=== PATIENT | female | born 1950 | race Caucasian/White ===

== ENCOUNTER 2019-03-13 10:52 | Outpatient (AMBR) | payer MEDICARE, MEDICAID, SELFPAY ==
--- NOTE | 2019-03-13 12:00 | PT.ODS1RPT ---
PT OP Progress/Discharge Note Date of Service: March 13, 2019 Progress Note/DC Note Progress Note/Discharge Note: DC Note Patient Information Visit Reasons: HIP PAIN Service Continue Service or Discharge: Discharge Discharge Date: 03/13/19 Status Subjective: Pt reports her ssx are about the same as before therapy. She hasn't bought an SI belt yet, will try to get one. Objective: Objective findings same as evaluation. 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 Pt has continued referred pain into the R glute. PT recommends SI belt to compress pelvis and reduce movement at SI joints. Plan: Pt is discharged to provider for further workup. Office Procedures PT Procedures PT Date of Service: 03/13/19 Therapeutic Exercise 30 minutes: Yes
== END 2019-04-11 23:59 | disposition home or self-care (01) ==
PROVIDERS: PCP Physical Medicine & Rehabilitation Hospice and Palliative Medicine; Referring Provider Physical Medicine & Rehabilitation Hospice and Palliative Medicine; Visit Provider Nurse Practitioner
DX: M79.18 Myalgia, other site (principal); M54.16 Radiculopathy, lumbar region; I10 Essential (primary) hypertension
CPT/HCPCS: 97110

== ENCOUNTER 2024-04-09 14:00 | Emergency (ER) | payer MEDICARE, MEDICAID, SELFPAY ==
[2024-04-09 14:03] VITALS: BP 187/92; PULSE 94; RESP 18; TEMP 36.7; O2SAT 95
[2024-04-09 14:04] VITALS: PULSE 102; RESP 22; O2SAT 97
--- NOTE | 2024-04-09 14:45 | PC.NURSE ---
PT BIBA do to abdominal pain that started around 10 this. Pt states that she has been seen for an inguinal hernia and has had it for several months, but today while having a small bowel movement, her stomach started hurting worse with a burning sensation starting from her very low right abdominal quadrant down into her groin.
--- NOTE | 2024-04-09 15:04 | XR_ITS ---
Examination: CT abdomen with intravenous contrast CT pelvis with intravenous contrast 2-D coronal reconstructions 2-D sagittal reconstructions Date and time of exam:April 09, 2024 1710 hrs. Comparison August 08, 2023 Indications: Right lower abdominal pain onset today. CTDI: vol (mGy) 11.2 DLP: (mGycm) 547 Technique: Multiple axial sections of the abdomen and pelvis have been obtained. 64 slice high-resolution scanner used. 3 mm axial sections have been obtained, post intravenous injection 60 cc Isovue-370 2-D sagittal, coronal reconstructions obtained. Low dose protocols were performed. One or more of the following dose reduction techniques were used; automated exposure control, adjustment of the mA and/or KV according to patient size, use of iterative reconstruction technique. Findings: Mild intrahepatic biliary tract dilatation Gallbladder is not visualized Common bile duct 14 mm Spleen not enlarged No pancreatic or adrenal mass Significant scarring right kidney No hydronephrosis or ureteral calculi Aorta is not enlarged The appendix is not visualized, no pericecal inflammatory change No bowel obstruction Abundant stool in the rectosigmoid No diverticulitis No pelvic mass Urinary bladder intact Moderate stool in the rectum Moderate osteopenia Impression: Extrahepatic biliary tract dilatation, recommend hepatobiliary sonography follow-up Significant scarring right kidney, no hydronephrosis or ureteral calculi No CT findings of appendicitis bowel obstruction or diverticulitis
[2024-04-09 15:31] LABS: Lactate (Lactic Acid) 2.4 mMol/L (0.4-2.0)
[2024-04-09 15:35] LABS: Basophils % (Auto) 1 % (0-2.5); Eosinophils # (Auto) 0.1 Thou/mm3 (0.0-0.5); Eosinophils % (Auto) 2 % (0-10); Hemoglobin 14.9 g/dL (12.0-16.0); Immature Granulocytes % (Auto) 0 % (0-0); Immature Granulocytes Auto 0.03 Thou/mm3 (0.00-0.00); Lymphocytes # (Auto) 1.3 Thou/mm3 (1.0-4.8); Lymphocytes % (Auto) 16 % (10-50); Mean Corpuscular HGB Conc 33.9 g/dl (31.0-37.0); Mean Corpuscular Hemoglobin 29.3 pg (25.0-35.0); Mean Corpuscular Volume 86 fL (80-100); Monocytes # (Auto) 0.6 Thou/mm3 (0.0-0.8); Monocytes % (Auto) 7 % (0-12); Neutrophils % (Auto) 75 % (37-80); Nucleated Red Blood Cell % 0 /100 WBC (0); Platelet Count 213 Thou/mm3 (140-440); Red Blood Count 5.09 Miln/mm3 (4.00-5.20); White Blood Count 8.1 Thou/mm3 (3.6-11.0)
[2024-04-09] MEDS: SODIUM CHLORIDE 0.9% 1000 ML 1,000 ML 999 ML IV (15:37)
[2024-04-09 15:50] LABS: Alanine Aminotransferase 114 U/L (10-49); Albumin, Serum 4.3 gm/dL (3.4-4.8); Albumin/Globulin Ratio 1.8 (1.2-2.2); Alkaline Phosphatase 156 U/L (46-116); Anion Gap 5 (7-16); Aspartate Amino Transferase 61 U/L (0-34); BUN/Creatinine Ratio 14 Ratio (12-20); Bilirubin,Total 0.3 mg/dL (0.3-1.2); Blood Urea Nitrogen 15 mg/dL (9-23); Calcium 10.7 mg/dL (8.3-10.6); Calcium (Corrected) 10.7 mg/dL (8.5-10.1); Carbon Dioxide 34.4 mMol/L (20.0-31.0); Chloride 103 mMol/L (98-107); Creatinine (Component) 1.1 mg/dL (0.6-1.3); Globulin 2.4 gm/dL (2.3-3.5); Glucose 86 mg/dL (74-106); Osmolality,Calculated 282 (275-295); Potassium 4.3 mMol/L (3.4-5.1); Sodium 142 mMol/L (136-145); Total Protein 6.7 gm/dL (5.7-8.2); eGFR 54 See Note
[2024-04-09 16:08] LABS: INR 0.9 (0.9-1.3); Prothrombin Time 10.2 Seconds (9.0-12.2)
[2024-04-09 16:10] VITALS: BP 156/81; PULSE 67; RESP 17; TEMP 37.3; O2SAT 97
--- NOTE | 2024-04-09 17:55 | EDNOTE_ITS ---
ED Abdominal Pain RME/HPI General Chief Complaint: Abdominal Pain Stated complaint: ABD PAIN Time seen by provider: 04/09/24 14:49 Arrival date/time: 04/09/24 14:00 RME / HPI RME / HPI narrative: 73-year-old female with a history of right groin hernia, who presents with approximately 2 weeks of persistent right groin pain and fullness. She has normal bowel movements, normal passing of flatus. She denies nausea vomiting or diarrhea. Patient notes a history of emergency due to risk. Related Data Home Medications ?Medication ?Instructions ?Recorded ?Confirmed hydrocodone 10 mg-acetaminophen 1 tab PO Q6H PRN Pain 03/02/22 03/07/23 325 mg tablet metoprolol tartrate 100 mg tablet 100 mg PO BID 03/02/22 03/07/23 Previous Rx's ?Medication ?Instructions ?Recorded naloxone 4 mg/actuation nasal spray 1 spray intranasal Q2M PRN opioid 10/01/22 overdose #2 ea nifedipine 30 mg tablet,extended 60 mg (2 x 30 mg) PO BID 30 days 03/10/23 release 24 hr #120 tabs Allergies Allergy/AdvReac Type Severity Reaction Status Date / Time No Known Allergies Allergy Verified 03/06/23 10:55 Review of Systems Review of Systems Systems Reviewed: All systems reviewed, normal except as documented ED Exam Narrative Physical exam: GENERAL APPEARANCE: AxOx4, generally well-appearing, no acute distress. HEENT: NC, AT. MMM. EOMI, clear conjunctiva, oropharynx clear. NECK: Supple without lymphadenopathy. No stiffness or restricted ROM. HEART: Normal rate and regular rhythm, normal S1/S1, no m/r/g LUNGS: CTAB, moving air well. No crackles or wheezes are heard. ABDOMEN: Soft, vertical, surgical scar over the suprapubic region, significant scar tissue difficult to palpate whether not there is a hernia nontender, nondi stended with good bowel sounds heard. BACK: No midline C/T/L spine pain or deformity, No CVAT, no obvious deformity. EXTREMITIES: Without cyanosis, clubbing or edema. MUSCULOSKELETAL: FROM of all major joints, no chest tenderness NEUROLOGICAL: Grossly nonfocal. Alert and oriented, moving all 4 extremities. CN not formally tested but appear grossly intact. Observed to ambulate with normal gait. Skin: Warm and dry without any rash. Course Quality Measures none Orders Category Date Time Status CT Screening NOW Care 04/09/24 15:[address] abdomen pelvis w con Stat Exams 04/09/24 15:04 Taken CBC Stat Lab 04/09/24 15:12 Completed CMP [Comprehensive Metabolic Panel] Stat Lab 04/09/24 15:12 Completed Lactate (Lactic Acid) Stat Lab 04/09/24 15:12 Results Partial Thromboplastin Time Stat Lab 04/09/24 15:12 Completed Prothrombin Time with INR Stat Lab 04/09/24 15:12 Completed Sodium Chloride 0.9% 1000 ml [Ns] 1,000 ml Med 04/09/24 15:03 Discontinued IV 999 mls/hr Vital Signs Vital signs: Vital Signs Temperature 98.1 F 04/09/24 14:03 Pulse Rate 94 04/09/24 14:03 Respiratory Rate 18 04/09/24 14:03 Blood Pressure 187/92 H 04/09/24 14:03 Pulse Oximetry (%) 95 04/09/24 14:03 Oxygen Delivery Method Room Air 04/09/24 14:03 SpO2 95% on room air, patient is not Abdominal Pain MDM Patient data External records reviewed:: [facility] previous records Clinical information provided by:: patient Social determinants that could affect healthcare access:: none Patient has the following chronic illnesses:: Hernia, diverticulosis How is presenting disease/condition affected by chronic disease/condition?: caused by Evaluation data The following diagnostics were reviewed and interpreted by me:: lab results and radiology exam(s) Lab and/or radiology exams considered but not ordered:: Workup pending Interpretation Summary: Workup pending Medications / Prescriptions Medications or Prescriptions considered but not ordered:: Workup pending Medication administrations:: Medication Administration History Discontinued Medications Sodium Chloride (Ns) 1,000 mls @ 999 mls/hr IV .Q1H1M ONE Stop: 04/09/24 16:03 Last Admin: 04/09/24 15:37 Dose: 999 mls/hr Documented By: CS Above Consultations Consultation(s) initiated? (list below): No Diagnosis Differential diagnosis abdominal pain: abdominal pain, constipation and diverticulitis Most likely diagnosis given after review of the tests above:: Workup pending Admission Indicated Admission indicated?: not indicated Explain why admission is indicated or not indicated:: Workup pending 1800: Signed out to oncoming provider, Dr. Betancur, pending CT results and final disposition Admission Request Was there a request for admission?: No Disposition Plan Disposition Plan: other (specify) (Signed out to oncoming provider in stable condition) Discharge Plan Prescriptions/Referrals Prescriptions/Med Rec: No Action metoprolol tartrate 100 mg tablet 100 mg PO BID Patient Comments: TAKE ONE TABLET BY MOUTH TWICE DAILY FOR BLOOD PRESSURE hydrocodone-acetaminophen 10-325 mg tablet 1 tab PO Q6H PRN (Reason: Pain) Hold Instructions: f/u with pcp Patient Comments: TAKE 1/2 TABLET BY MOUTH EVERY 6 HOURS NEEDED FOR PAIN naloxone 4 mg/actuation spray,non-aerosol 1 spray intranasal Q2M PRN (Reason: opioid overdose) Qty: 2 0RF Rx Instructions: spray 1 dose in 1 nostril; switch nostrils w ea dose till help comes nifedipine 30 mg Tablet Extended Release 24hr 60 mg PO BID 30 Days Qty: 120 1RF Referrals: Raheem Liu MD [Primary Care Provider] - In 1 week Problem List Clinical Impression: Right groin pain Patient/Caregiver Discharge Instructions Print Language: Uzbek
--- NOTE | 2024-04-09 18:16 | PD.EDABDPN ---
ED Abdominal Pain RME/HPI General Chief Complaint: Abdominal Pain Stated complaint: ABD PAIN Time seen by provider: 04/09/24 14:49 Arrival date/time: 04/09/24 14:00 RME / HPI RME / HPI narrative: 73-year-old female with a history of right groin hernia, who presents with approximately 2 weeks of persistent right groin pain and fullness. She has normal bowel movements, normal passing of flatus. She denies nausea vomiting or diarrhea. Patient notes a history of emergency due to risk. Related Data Home Medications ?Medication ?Instructions ?Recorded ?Confirmed hydrocodone 10 mg-acetaminophen 1 tab PO Q6H PRN Pain 03/02/22 03/07/23 325 mg tablet metoprolol tartrate 100 mg tablet 100 mg PO BID 03/02/22 03/07/23 Previous Rx's ?Medication ?Instructions ?Recorded naloxone 4 mg/actuation nasal spray 1 spray intranasal Q2M PRN opioid 10/01/22 overdose #2 ea nifedipine 30 mg tablet,extended 60 mg (2 x 30 mg) PO BID 30 days 03/10/23 release 24 hr #120 tabs Allergies Allergy/AdvReac Type Severity Reaction Status Date / Time No Known Allergies Allergy Verified 03/06/23 10:55 Course Orders Category Date Time Status CT Screening NOW Care 04/09/24 15:[address] abdomen pelvis w con Stat Exams 04/09/24 15:04 Taken CBC Stat Lab 04/09/24 15:12 Completed CMP [Comprehensive Metabolic Panel] Stat Lab 04/09/24 15:12 Completed Lactate (Lactic Acid) Stat Lab 04/09/24 15:12 Results Partial Thromboplastin Time Stat Lab 04/09/24 15:12 Completed Prothrombin Time with INR Stat Lab 04/09/24 15:12 Completed Sodium Chloride 0.9% 1000 ml [Ns] 1,000 ml Med 04/09/24 15:03 Discontinued IV 999 mls/hr Vital Signs Vital signs: Vital Signs Temperature 98.1 F 04/09/24 14:03 Pulse Rate 94 04/09/24 14:03 Respiratory Rate 18 04/09/24 14:03 Blood Pressure 187/92 H 04/09/24 14:03 Pulse Oximetry (%) 95 04/09/24 14:03 Oxygen Delivery Method Room Air 04/09/24 14:03 Abdominal Pain MDM Medications / Prescriptions Medication administrations:: Medication Administration History Discontinued Medications Sodium Chloride (Ns) 1,000 mls @ 999 mls/hr IV .Q1H1M ONE Stop: 04/09/24 16:03 Last Admin: 04/09/24 15:37 Dose: 999 mls/hr Documented By: JANENE Discharge Plan Prescriptions/Referrals Prescriptions/Med Rec: No Action metoprolol tartrate 100 mg tablet 100 mg PO BID Patient Comments: TAKE ONE TABLET BY MOUTH TWICE DAILY FOR BLOOD PRESSURE hydrocodone-acetaminophen 10-325 mg tablet 1 tab PO Q6H PRN (Reason: Pain) Hold Instructions: f/u with pcp Patient Comments: TAKE 1/2 TABLET BY MOUTH EVERY 6 HOURS NEEDED FOR PAIN naloxone 4 mg/actuation spray,non-aerosol 1 spray intranasal Q2M PRN (Reason: opioid overdose) Qty: 2 0RF Rx Instructions: spray 1 dose in 1 nostril; switch nostrils w ea dose till help comes nifedipine 30 mg Tablet Extended Release 24hr 60 mg PO BID 30 Days Qty: 120 1RF Referrals: Raheem Liu MD [Primary Care Provider] - In 1 week Problem List Clinical Impression: Right groin pain Patient/Caregiver Discharge Instructions Print Language: Spanish
[2024-04-09 18:17] VITALS: BP 160/86; PULSE 62; RESP 18; TEMP 37.3; O2SAT 96
--- NOTE | 2024-04-09 18:20 | EDNOTE_ITS ---
Emergency Room Addendum Addendum Narrative: 1800: Care assumed from Dr. Scott, the previous shift emergency physician. Past medical, surgical, social and family history reviewed. Vitals and home medications reviewed. Results and treatment plan discussed. I will assume the care of the patient at this time and will follow the patient, pending CT abdomen pelvis. Please refer to the emergency department record for history and examination from initial visit. Patient has an indwelling solis. Labs show the patient has a UTI. Patient is stable to be discharged with Keflex. RADIOLOGY RESULTS: [facility] Report Signed ADDENDUM ADDENDUM #1 Addendum: Right femoral hernia noted containing small bowel but no incarcerated bowel or bowel obstruction ORIGINAL REPORT Patient: NIMCO MARIE. Record#: [id number] Birthdate: 1950 Age/Sex: 73 / F Location: [facility] Attending Dr: Ordering Physician: Kashmir Scott MD Date of Service: 04/09/24 Procedure(s): CT abdomen pelvis w con Accession Number(s): [id number] cc: Raheem Liu MD; Kashmir Scott MD; Wayne Espino MD~ Examination: CT abdomen with intravenous contrast CT pelvis with intravenous contrast 2-D coronal reconstructions 2-D sagittal reconstructions Date and time of exam:April 09, 2024 1710 hrs. Comparison August 08, 2023 Indications: Right lower abdominal pain onset today. CTDI: vol (mGy) 11.2 DLP: (mGycm) 547 Technique: Multiple axial sections of the abdomen and pelvis have been obtained. 64 slice high-resolution scanner used. 3 mm axial sections have been obtained, post intravenous injection 60 cc Isovue-370 2-D sagittal, coronal reconstructions obtained. Low dose protocols were performed. One or more of the following dose reduction techniques were used; automated exposure control, adjustment of the mA and/or KV according to patient size, use of iterative reconstruction technique. Findings: Mild intrahepatic biliary tract dilatation Gallbladder is not visualized Common bile duct 14 mm Spleen not enlarged No pancreatic or adrenal mass Significant scarring right kidney No hydronephrosis or ureteral calculi Aorta is not enlarged The appendix is not visualized, no pericecal inflammatory change No bowel obstruction Abundant stool in the rectosigmoid No diverticulitis No pelvic mass Urinary bladder intact Moderate stool in the rectum Moderate osteopenia Impression: Extrahepatic biliary tract dilatation, recommend hepatobiliary sonography follow-up Significant scarring right kidney, no hydronephrosis or ureteral calculi No CT findings of appendicitis bowel obstruction or diverticulitis Dictated By: Wayne Espino MD Signed By: <Electronically signed by Wayne Espino MD in OV> 04/09/24 1939
[2024-04-09 18:22] LABS: Reflex Lactate? Y
[2024-04-09 18:46] LABS: Lactic Acid, 3 HR 1.6 mMol/L (0.4-2.0)
[2024-04-09 20:06] VITALS: BP 106/93; PULSE 73; RESP 18; TEMP 37.1; O2SAT 96
[2024-04-09] MEDS: ONDANSETRON INJ 2 MG/ML INJ 2 ML 4 MG IV (21:00)
[2024-04-09] MEDS: HYDROmorphone INJ 2 MG/ML VIAL 0.5 MG IVP (21:03)
[2024-04-09] MEDS: SODIUM CHLORIDE 0.9% 500 ML 500 ML 999 ML IV (21:12)
== END 2024-04-09 21:25 | disposition home or self-care (01) ==
PROVIDERS: Emergency Medicine; Emergency Provider Emergency Medicine; PCP Family Medicine
DX: K41.90 Unilateral femoral hernia, without obstruction or gangrene, not specified as recurrent (principal); N39.0 Urinary tract infection, site not specified
CPT/HCPCS: 36415; 74177; 80053; 83605; 85025; 85610; 85730; 96360; 96361; 99285; A4649; J2405; J3490; J7030; J7040; Q9967

== ENCOUNTER 2024-04-25 05:40 | Day surgery (SDC) | payer MEDICARE, MEDICAID, SELFPAY ==
[2024-04-21 06:35] VITALS: BMI 27.6
--- NOTE | 2024-04-21 07:00 | EKG_ITS ---
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
[2024-04-21 08:13] LABS: Basophils % (Auto) 1 % (0-2.5); Eosinophils # (Auto) 0.1 Thou/mm3 (0.0-0.5); Eosinophils % (Auto) 2 % (0-10); Hematocrit 44.5 % (36.0-46.0); Hemoglobin 14.9 g/dL (12.0-16.0); Immature Granulocytes % (Auto) 1 % (0-0); Immature Granulocytes Auto 0.03 Thou/mm3 (0.00-0.00); Lymphocytes # (Auto) 1.2 Thou/mm3 (1.0-4.8); Lymphocytes % (Auto) 19 % (10-50); Mean Corpuscular HGB Conc 33.5 g/dl (31.0-37.0); Mean Corpuscular Hemoglobin 29.2 pg (25.0-35.0); Mean Corpuscular Volume 87 fL (80-100); Monocytes # (Auto) 0.4 Thou/mm3 (0.0-0.8); Monocytes % (Auto) 6 % (0-12); Neutrophils # (Auto) 4.4 Thou/mm3 (1.8-7.7); Neutrophils % (Auto) 72 % (37-80); Nucleated Red Blood Cell % 0 /100 WBC (0); Platelet Count 222 Thou/mm3 (140-440); RDW Standard Deviation 39.7 fL (36.4-46.3); White Blood Count 6.2 Thou/mm3 (3.6-11.0)
[2024-04-21 08:33] LABS: Alanine Aminotransferase 53 U/L (10-49); Albumin, Serum 4.4 gm/dL (3.4-4.8); Albumin/Globulin Ratio 1.7 (1.2-2.2); Alkaline Phosphatase 126 U/L (46-116); Anion Gap 3 (7-16); Aspartate Amino Transferase 37 U/L (0-34); BUN/Creatinine Ratio 14 Ratio (12-20); Bilirubin,Total 0.5 mg/dL (0.3-1.2); Blood Urea Nitrogen 15 mg/dL (9-23); Carbon Dioxide 30.5 mMol/L (20.0-31.0); Chloride 106 mMol/L (98-107); Creatinine (Component) 1.1 mg/dL (0.6-1.3); Estimated Creatinine Clearance 42.6 mL/min (>60); Globulin 2.6 gm/dL (2.3-3.5); Glucose 83 mg/dL (74-106); Osmolality,Calculated 277 (275-295); Potassium 4.7 mMol/L (3.4-5.1); Sodium 139 mMol/L (136-145); eGFR 54 See Note
[2024-04-21 08:56] LABS: Prothrombin Time 10.9 Seconds (9.0-12.2)
[2024-04-25] VITALS (8 sets, daily range): BP systolic 106–175; BP diastolic 64–86; PULSE 50–84; RESP 12–13; TEMP 36.2–36.6; O2SAT 95–98; BMI 27.1
[2024-04-25] MEDS: RINGERS LACTATED 1000 ML 1,000 ML 20 ML IV (06:34)
--- NOTE | 2024-04-25 07:20 | CHAP ---
Visited briefly with patient giving encouragement and prayer.Also spoke briefly with patients son giving encouragement.
--- NOTE | 2024-04-25 08:28 | SUR.PHASEI ---
0828: Pt. arrived with LMA in place, vitals stable, breathing unlabored, no signs of distress, dressing to right lower ABD CDI, no active bleed noted, report received from Jean-Paul GERBER and Juventino SHIPMAN.
--- NOTE | 2024-04-25 08:40 | ESOP_ITS ---
Date of Procedure 04/25/24 Pre Op Diagnosis Incarcerated right femoral hernia Post Op Diagnosis Incarcerated right femoral hernia Procedure Repair of incarcerated right femoral hernia with mesh plug Findings Right femoral hernia with large sac and incarcerated omentum Procedure Description Patient brought into the operating room in supine position. After administration of general endotracheal anesthesia, patient's right groin prepped and draped in standard surgical manner. Local anesthesia was administered. 4 cm incision was made over the right groin and dissection was deepened into soft tissue. The Yolette's fascia was divided. Patient was noted to have large hernia sac below the inguinal ligament. The sac was circumferentially dissected off surrounding tissue and cleared. The sac was opened, the contents were incarcerated omentum were reduced. The fascia was ligated. The defect was closed with placement of the mesh plug. The plug was secured circumferentially, superiorly into the inguinal ligament, medially into the pubic tubercle, inferiorly into the Elmer's ligament and laterally into the femoral sheath. The area was washed and irrigated. Hemostasis was adequate and satisfactory. Yolette's fascia reapproximated with interrupted sutures using 2-0 Vicryl and incision was closed with 4-0 Monocryl in subcuticular fashion. Dermabond and pressure dressings applied. Patient tolerated the procedure well. She was extubated, breathing spontaneously and without difficulty and was transferred to postanesthesia care in stable condition. Instruments, needles and sponge counts were reported to be correct x 2. Anesthesia GETA and local Pathology / specimen Other (Hernia sac) Estimated Blood Loss 5 Condition Stable Disposition PACU Surgeon Pedrito Sánchez MD Surgical Staff Operation Date: 04/25/24 07:30 Case Staff STRAIGHTENING MACHINE OPERATOR: Isaac Sheridan RNtrailers and motor homes salesperson: Candis Stover
[2024-04-25] MEDS: ACETAMINOPHEN IVPB 1,000 MG/100 ML VIAL 250 MG IV (08:49)
[2024-04-25] MEDS: fentaNYL CIT INJ 50 mCg/ML AMP 2ML IV ×2 (08:58→09:08)
--- NOTE | 2024-04-25 09:35 | SUR.PHASEII ---
0935: Pt. AAOx4, vitals stable, breathing unlabored, complaint of slight pain, no complaint of nausea, dressing to lower ABD CDI, no active bleed noted, pt. tolerated sips of water well, pt. ambulated to wheelchair with steady gait and minimal assist, no complications. Gave discharge instructions to the pt. and her ride, both verbalized understanding and had no further questions. Pt. left with all personal belongings.
== END 2024-04-25 09:35 | disposition home or self-care (01) ==
PROVIDERS: Anesthesiology; PCP Family Medicine; Referring Provider Surgery; Visit Provider Surgery
PROC: (CPT 49553; principal; 2024-04-25 07:30)
DX: K41.30 Unilateral femoral hernia, with obstruction, without gangrene, not specified as recurrent (principal)
CPT/HCPCS: 49553; 36415; 80053; 85025; 85610; 93005; A4217; A4649; C1781; J0131; J0690; J2250; J2704; J3010; J3490; J7120; J1596

== ENCOUNTER 2024-04-30 17:01 | Emergency (ER) | payer MEDICARE, MEDICAID, SELFPAY ==
[2024-04-30 17:39] VITALS: BP 150/96; PULSE 110; RESP 24; TEMP 36.6; O2SAT 96; BMI 27.1
--- NOTE | 2024-04-30 17:55 | PD.EDRME ---
Rapid Medical Screening Exam E Arrival date/time: 04/30/24 17:01 This is a 73-year-old female that comes into the emergency room with complaints of abdominal pain nausea and constipation for over a week. Patient states that she had a right inguinal hernia surgery done by Dr. Sánchez. Patient surgeries was April 25, 2024. Patient reports that she has not had a bowel movement since before the surgery. Patient complains of some urinary symptoms. She reports passing gas. Reports history of high blood pressure. I have greeted and performed a focused initial assessment of this patient. Initial appropriate labs ordered at this time. A comprehensive ED assessment and evaluation of the patient and analysis of all test and completion of medical decision making process will be conducted by additional ED provider. Chief Complaint: Abdominal Pain Time Seen by Provider: 04/30/24 17:44 Vital signs: Vital Signs Temperature 97.9 F 04/30/24 17:39 Pulse Rate 110 H 04/30/24 17:39 Respiratory Rate 24 H 04/30/24 17:39 Blood Pressure 150/96 H 04/30/24 17:39 Pulse Oximetry (%) 96 04/30/24 17:39 Oxygen Delivery Method Room Air 04/30/24 17:39
--- NOTE | 2024-04-30 17:57 | XR_ITS ---
Examination: Abdomen AP single view Technique: AP portable supine abdomen, single view Exam date and time: April 30, 2024 1812 hrs. Indications: Onset abdominal pain today Findings: Significant air and stool throughout the colon No free air Stomach is not distended Moderate osteopenia Impression: Significant colonic ileus
[2024-04-30 18:23] LABS: Basophils % (Auto) 1 % (0-2.5); Eosinophils # (Auto) 0.1 Thou/mm3 (0.0-0.5); Eosinophils % (Auto) 2 % (0-10); Hematocrit 46.5 % (36.0-46.0); Hemoglobin 15.4 g/dL (12.0-16.0); Immature Granulocytes % (Auto) 0 % (0-0); Immature Granulocytes Auto 0.03 Thou/mm3 (0.00-0.00); Lymphocytes # (Auto) 1.7 Thou/mm3 (1.0-4.8); Lymphocytes % (Auto) 23 % (10-50); Mean Corpuscular HGB Conc 33.1 g/dl (31.0-37.0); Mean Corpuscular Hemoglobin 29.3 pg (25.0-35.0); Mean Corpuscular Volume 88 fL (80-100); Monocytes # (Auto) 0.6 Thou/mm3 (0.0-0.8); Monocytes % (Auto) 8 % (0-12); Neutrophils # (Auto) 4.9 Thou/mm3 (1.8-7.7); Neutrophils % (Auto) 66 % (37-80); Nucleated Red Blood Cell % 0 /100 WBC (0); Platelet Count 251 Thou/mm3 (140-440); RDW Standard Deviation 40.7 fL (36.4-46.3); Red Blood Count 5.26 Miln/mm3 (4.00-5.20); White Blood Count 7.4 Thou/mm3 (3.6-11.0)
[2024-04-30 18:41] LABS: Alanine Aminotransferase 38 U/L (10-49); Albumin, Serum 4.7 gm/dL (3.4-4.8); Albumin/Globulin Ratio 1.7 (1.2-2.2); Alkaline Phosphatase 122 U/L (46-116); Anion Gap 8 (7-16); Aspartate Amino Transferase 19 U/L (0-34); BUN/Creatinine Ratio 11 Ratio (12-20); Bilirubin,Total 0.4 mg/dL (0.3-1.2); Blood Urea Nitrogen 12 mg/dL (9-23); Calcium 10.2 mg/dL (8.3-10.6); Calcium (Corrected) 10.2 mg/dL (8.5-10.1); Carbon Dioxide 26.6 mMol/L (20.0-31.0); Chloride 103 mMol/L (98-107); Creatinine (Component) 1.1 mg/dL (0.6-1.3); Estimated Creatinine Clearance 42.1 mL/min (>60); Globulin 2.8 gm/dL (2.3-3.5); Glucose 100 mg/dL (74-106); Lipase 32 U/L (12-53); Osmolality,Calculated 275 (275-295); Potassium 4.7 mMol/L (3.4-5.1); Sodium 138 mMol/L (136-145); Total Protein 7.5 gm/dL (5.7-8.2); eGFR 54 See Note
[2024-04-30 19:51] LABS: Collection Type, Urine Voided
[2024-04-30 20:02] LABS: Bilirubin,Urine Negative (Negative); Blood,Urine Negative (Negative); Clarity,Urine Clear (Clear/Hazy); Color,Urine Lt-Yellow (Lt Yel-Yel); Glucose, Urine Negative (Negative); Hyaline Casts,Urine < 1 /hpf (0-1); Ketones,Urine Negative (Negative); Leukocyte Esterase,Urine Positive (Negative); Nitrite,Urine Negative (Negative); Protein,Urine Negative (Neg - Trace); RBC,Urine 1 /hpf (0-3); Specific Gravity,Urine 1.016 (1.001-1.035); Squamous Epithelial Cell,Urine < 1 /hpf (0-5); Urobilinogen,Urine Negative mg/dL (0.0-1.0); WBC,Urine 11 /hpf (0-5)
[2024-04-30 20:09] LABS: Culture Indicated,Urine Yes
[2024-04-30 21:21] VITALS: BP 144/94; PULSE 87; RESP 18; TEMP 36.8; O2SAT 98
--- NOTE | 2024-04-30 21:28 | PC.NURSE ---
patient came in today for abdominal pain for past 3 days. patient states she hasnt been able to have a bowel movement for 8-9 days. patient got surgery for inguinal hernia on 04/25/[address] [facility] and was told by dr to come in to ER if she wasnt able to have a bowel movement
--- NOTE | 2024-04-30 22:01 | XR_ITS ---
Examination: CT abdomen with intravenous contrast CT pelvis with intravenous contrast 2-D coronal reconstructions 2-D sagittal reconstructions Date and time of exam:April 30, 2024 10:46 PM Comparison April 09, 2024. CTDI: vol (mGy) 10.21 DLP: (mGycm) 589 Indications: No bowel movement 9 days, postop ankle surgery: February 23, 2025 Technique: Multiple axial sections of the abdomen and pelvis have been obtained. 64 slice high-resolution scanner used. 3 mm axial sections have been obtained, post intravenous injection 60 cc Isovue-370 2-D sagittal, coronal reconstructions obtained. Low dose protocols were performed. One or more of the following dose reduction techniques were used; automated exposure control, adjustment of the mA and/or KV according to patient size, use of iterative reconstruction technique. Findings: Gallbladder is not visualized Common bile duct 19 mm Spleen is not enlarged No pancreatic or adrenal mass Significant scarring and atrophy right kidney No hydronephrosis Abdominal aortic calcification no aneurysmal dilatation Small fat-containing inguinal hernia Large amounts of stool throughout the colon, especially rectum, mild rectal wall thickening Colonic diverticulosis Postoperative change with air densities right groin Fluid collection in the right groin with air fluid level, the mass measuring 5.3 x 7.1 x 3.5 cm with adjacent skin thickening in the right perineum Grade 1 anterolisthesis L4 on L5 Impression: Extrahepatic biliary tract dilatation, recommend hepatobiliary sonography follow-up Fluid collection, 5.3 x 7.1 x 3.5 cm in the right groin with skin thickening in the right perineum Differential would include hematoma, abscess, clinical correlation advised
--- NOTE | 2024-04-30 22:07 | EDNOTE_ITS ---
ED Abdominal Pain RME/HPI General Chief Complaint: Abdominal Pain Stated complaint: NO BM FOR 8-9 DAYS Time seen by provider: 04/30/24 17:44 Arrival date/time: 04/30/24 17:01 Source: patient Mode of arrival: ambulatory Limitations: no limitations RME / HPI RME / HPI narrative: Dr. Scott?s Main ED Evaluation: This is a 73-year-old female who presents to the emergency department with complaints of abdominal pain, nausea, and constipation persisting for over a week. The patient reports undergoing right inguinal hernia repair performed by Dr. Sánchez on April 25, 2024. Since the surgery, she has not had a bowel movement, though she reports passing gas. She also notes experiencing urinary symptoms, though specifics are unclear at this time. The abdominal pain is described as diffuse, with intermittent cramping that has progressively worsened over the past few days. The nausea is persistent with no associated vomiting. She denies fever, chills, or recent dietary changes. The patient?s past medical history is significant for hypertension. She denies any known gastrointestinal disorders, prior episodes of constipation, or similar symptoms before surgery. She has been attempting to manage her symptoms. Due to the persistence of symptoms and increasing discomfort, she sought evaluation in the emergency department for further assessment and management. Related Data Home Medications ?Medication ?Instructions ?Recorded ?Confirmed metoprolol tartrate 100 mg tablet 100 mg PO BID 03/02/22 04/21/24 methadone 10 mg tablet 85 mg PO QDAY 04/21/24 04/21/24 Previous Rx's ?Medication ?Instructions ?Recorded docusate sodium 100 mg capsule 200 mg (2 x 100 mg) PO BID #60 caps 04/25/24 (Colace) hydrocodone 5 mg-acetaminophen 325 1 tab PO Q6H PRN pain (scale score 04/25/24 mg tablet 7-10) #20 tabs ibuprofen 600 mg tablet 600 mg PO Q8H PRN pain (scale 04/25/24 score 4-6) #15 tabs Allergies Allergy/AdvReac Type Severity Reaction Status Date / Time No Known Allergies Allergy Verified 04/30/24 17:05 Review of Systems Review of Systems Systems Reviewed: All systems reviewed, normal except as documented Past Medical History Past Medical History NEUROLOGIC: Negative Neurological Disorders or Seizures CARDIAC: Positive Cardiac Disorders (was told many yrs ago she had CHF), Cardiac Arrhythmia and Hypertension; Negative Congestive Heart Failure RESPIRATORY: Negative Chronic Obstructive Pulmonary Disease (COPD) or Asthma GASTROINTESTINAL: Positive Gastrointestinal Disorders, Pancreatitis, Diverticulitis, Ulcer and Hemorrhoids; Negative Hepatitis GENITOURINARY: Positive Inguinal Hernia (right); Negative Genitourinary Disorders or Renal Disease REPRODUCTIVE: Positive Previous Pregnancies MUSCULOSKELETAL: Positive Musculoskeletal Disorders, Arthritis and Osteomyelitis ENDOCRINE: Negative Endocrine Disorders, Diabetes Mellitus Type 1 or Diabetes Mellitus Type 2 HEMATOLOGIC: Negative Blood Disorders or Sickle Cell Disease PSYCHO/SOCIAL: Positive Recreational Drug Use OTHER HISTORY: Positive Hospitalization, Blood Transfusions, Chicken Pox, Measles, Mumps and Cancer; Negative Autoimmune Disease, Shingles, Blood Transfusion Reaction or Anesthesia Reactions Family History FAMILY HISTORY: Positive Family Cancer; Negative Family Psychiatric Problems, Family Respiratory Disorders, Family Cardiac Disorders, Family Gastrointestinal Problems, Family Surgery or Family Anesthesia Reaction Surgical History SURGICAL: Positive Abdominal Surgery, Tubal Ligation and Section (x3) Social History SMOKING STATUS: Former smoker ED Exam Narrative Physical exam: GENERAL APPEARANCE: AxOx4, generally well-appearing, no acute distress. HEENT: NC, AT. MMM. EOMI, clear conjunctiva, oropharynx clear. NECK: Supple without lymphadenopathy. No stiffness or restricted ROM. HEART: Normal rate and regular rhythm, normal S1/S1, no m/r/g LUNGS: CTAB, moving air well. No crackles or wheezes are heard. ABDOMEN: Soft, nontender, nondistended with good bowel sounds heard, surgical hernia has some mild ecchymosis around it without significant erythema or wound dehiscence BACK: No midline C/T/L spine pain or deformity, No CVAT, no obvious deformity. EXTREMITIES: Without cyanosis, clubbing or edema. MUSCULOSKELETAL: FROM of all major joints, no chest tenderness NEUROLOGICAL: Grossly nonfocal. Alert and oriented, moving all 4 extremities. CN not formally tested but appear grossly intact. Observed to ambulate with normal gait. Skin: Warm and dry without any rash. General Limitations: Present no limitations Course Quality Measures none Orders Category Date Time Status CT Screening NOW Care 04/30/24 22:01 Completed Enema Administration NOW Care 04/30/24 22:58 Completed Insert IV NOW Care 04/30/24 22:[address] abdomen pelvis w con Stat Exams 04/30/24 22:01 Completed KUB [XR abdomen 1V] Stat Exams 04/30/24 17:57 Completed CBC Stat Lab 04/30/24 18:10 Completed Comprehensive Metabolic Panel Stat Lab 04/30/24 18:10 Completed Lipase Stat Lab 04/30/24 18:10 Completed Urinalysis, C/S if Indicated Stat Lab 04/30/24 19:31 Completed Urine Culture Stat Lab 04/30/24 19:31 Received Acetaminophen Tab [Tylenol Tab] Med 04/30/24 22:58 Discontinued 650 mg PO X1 ONE Vital Signs Vital signs: Vital Signs Temperature 97.9 F 04/30/24 17:39 Pulse Rate 110 H 04/30/24 17:39 Respiratory Rate 24 H 04/30/24 17:39 Blood Pressure 150/96 H 04/30/24 17:39 Pulse Oximetry (%) 96 04/30/24 17:39 Oxygen Delivery Method Room Air 04/30/24 17:39 Procedures -ED Procedure Comment 0130 Attempted fecal disimpaction after enema, very firm, hard stool, able to break up firmness but unable to extract due to the discomfort. 0200 Re-attempted fecal disimpaction, patient tolerated procedure well, reports total relief of symptoms Abdominal Pain MDM MDM Narrative MDM Narrative:: Ms. Martines presents to the emergency department with persistent constipation starting before her hernia repair and persisting afterwards. She is passing gas without nausea and vomiting therefore low suspicion for small bowel obstruction. exam is otherwise benign. Given her recent surgery to assess for possible bowel herniation or dehiscence of her hernia repair CT scan was done which shows no acute findings. She does have copious amount of stool. On my rectal exam she appears to actually be impacted with feces and I was able to break it up however she could not tolerate the disimpaction component. Double enemas were given afterwards which had a significant reduction of stool and near complete resolution of her abdominal pain. As she is well-appearing, there is no acute findings on workup she is appropriate for further outpatient management. Will have her complete a complete bottle of magnesium citrate through the course tomorrow to continue to clear out her system, she does not need to do this here she can do this in the comfort of her home. Scribe Attestation: I, Maryann Vinson, am scribing for and in the presence of Dr. Scott. Provider Notation: Although this document has been carefully reviewed, there may still be some phonetic and other typographical errors. These errors are purely grammatical due to imperfections in the software program and should not be construed in any way to compromise the substance of the patient's medical care during this visit. Patient data External records reviewed:: [facility] previous records Clinical information provided by:: patient and family Social determinants that could affect healthcare access:: none Patient has the following chronic illnesses:: See PMH How is presenting disease/condition affected by chronic disease/condition?: uneffected by Evaluation data The following diagnostics were reviewed and interpreted by me:: lab results and radiology exam(s) Lab and/or radiology exams considered but not ordered:: n/a Interpretation Summary: See narrative. Examination: Abdomen AP single view Exam date and time: April 30, 2024 1812 hrs. Indications: Onset abdominal pain today Findings: Significant air and stool throughout the colon No free air Stomach is not distended Moderate osteopenia Impression: Significant colonic ileus Dictated By: Wayne Espino MD Medications / Prescriptions Medications or Prescriptions considered but not ordered:: n/a Medication administrations:: Medication Administration History Discontinued Medications Acetaminophen (Acetaminophen 325 Mg Tablet) 650 mg PO X1 ONE Stop: 04/30/24 22:59 Last Admin: 04/30/24 23:08 Dose: 650 mg Documented By: EF as above Consultations Consultation(s) initiated? (list below): No Diagnosis Differential diagnosis abdominal pain: other (Bowel hernia, incarcerated hernia, SBO, fecal impaction vs SBO) Most likely diagnosis given after review of the tests above:: See clinical impression below Admission Indicated Admission indicated?: not indicated Admission Request Was there a request for admission?: No Disposition Plan Disposition Plan: Discharge Discharge Attestation Discharge Attestation: The patient and all family members were given an opportunity to ask questions and understood the discharge instructions. Discharge instructions specifically effects, indications for sooner follow up or return to the emergency department, and the expected course of current diagnosis. Patient condition: Stable Discharge Plan Plan Patient Disposition: HOME (Self Care) Prescriptions/Referrals Prescriptions/Med Rec: No Action methadone 10 mg Tablet 85 mg PO QDAY docusate sodium [Colace] 100 mg capsule 200 mg PO BID Qty: 60 0RF ibuprofen 600 mg tablet 600 mg PO Q8H PRN (Reason: pain (scale score 4-6)) Qty: 15 0RF hydrocodone-acetaminophen 5-325 mg tablet 1 tab PO Q6H MDD 4 PRN (Reason: pain (scale score 7-10)) Qty: 20 0RF metoprolol tartrate 100 mg tablet 100 mg PO BID Patient Comments: TAKE ONE TABLET BY MOUTH TWICE DAILY FOR BLOOD PRESSURE Referrals: Raheem Liu MD [Primary Care Provider] - In 1 week Problem List Clinical Impression: Fecal impaction, Constipation Patient/Caregiver Discharge Instructions Education Materials: Eating a High-Fiber Diet, ED Constipation (Adult), ED Fecal Impaction, Treated Additional Instructions: Follow-up with Dr. Sánchez as scheduled. Please take a bottle of [id number] ter magnesium citrate (liquid) tomorrow in the comfort of your home. You can return to the emergency department if symptoms worsen or for any new or concerning issues. Print Language: Urdu Stand Alone Forms: Amy Award Info., Patient Portal Info Letter
[2024-04-30] MEDS: ACETAMINOPHEN 325 MG TABLET 650 MG PO (23:08)
--- NOTE | 2024-05-01 02:20 | PC.NURSE ---
patient had large BM after soap izzy enema
[2024-05-01 02:23] VITALS: BP 160/87; PULSE 78; RESP 18; TEMP 36.5; O2SAT 97
== END 2024-05-01 02:38 | disposition home or self-care (01) ==
PROVIDERS: Nurse Practitioner Family; Emergency Provider Emergency Medicine; PCP Family Medicine
DX: K56.41 Fecal impaction (principal); I10 Essential (primary) hypertension
CPT/HCPCS: 36415; 74018; 74177; 80053; 81001; 83690; 85025; 87086; 99285; A4649; Q9967; A9270